=== PATIENT | female | born 1940 | race Caucasian/White ===

== ENCOUNTER → 2018-04-02 14:35 | Outpatient (CLI) | payer MEDICARE, SELFPAY ==
--- NOTE | 2018-04-02 14:39 | BI_ITS ---
MAMMOGRAPHY - BILATERAL SCREENING REASON FOR EXAM: Female, 77 years old. Routine annual screening examination. PERTINENT HISTORY: Non-contributory. TECHNIQUE: Digital bilateral breast sonia (3D mammographic acquisition) in the CC and MLO projections. 2-D mediolateral oblique (MLO) and craniocaudad (CC) views of both breasts were obtained. CAD: Full Field Digital Mammography with Computer Added Detection was performed. COMPARISON: Comparison is made with prior study dated February 24, 2013. FINDINGS: Breast Composition: The breasts are heterogeneously dense, which may obscure small masses. There are no dominant masses or suspicious calcifications. Stable small bilateral axillary lymph nodes. No other significant abnormalities are identified. There has been no significant change since the prior study. BI/SCREENING MAMM (CAD), BILAT IMPRESSION: Stable bilateral screening mammogram. Yearly follow-up mammogram recommended. (A) ASSESSMENT CATEGORY: BIRADS Category 2: Benign. A letter regarding these results will be sent to the patient by the facility within 30 days. Approximately 10% of breast cancers are not detected by mammography. A normal mammogram should not delay biopsy of a clinically suspicious abnormality. [id number] Electronically Signed: Job Toussaint MD at 8:24 EST Tel [phone], Service support ,
--- NOTE | 2018-04-02 14:42 | BD_ITS ---
STUDY: DUAL ENERGY X-RAY ABSORPTIOMETRY / DXA REASON FOR EXAM: Female, 77 years old. Early menopause. TECHNIQUE: Bone Mineral Density (BMD) measurements of lumbar spine and bilateral hips were obtained. COMPARISON: Loss of height. FINDINGS: Lumbar Spine (L1-L4): g/cm2 (0.849) / T-score (-2.6) / Z-score (-0.8) Findings are suggestive of osteoporosis with a high fracture risk. Left Femur Total: g/cm2 (0.759) / T-score (-2.0) / Z-score (-0.1) Left Femoral Neck: g/cm2 (0.621) / T-score (-3.0) / Z-score (-1.0) Right Femur Total: g/cm2 (0.767) / T-score (-1.9) / Z-score (0.0) Right Femoral Neck: g/cm2 (0.635) / T-score (-2.9) / Z-score (-0.9) BD/Dexa Bone Density Study IMPRESSION: The patient is considered osteoporotic as outlined below according to World [employer] Organization (WHO) criteria with a high fracture risk. Reference Information: The T-score is the number of standard deviations above or below the standard which is normal for young adults at their peak bone mineral density. The World Health Organization (WHO) interprets the T-scores as follows: Above -1 Normal bone density Between -1 and -2.5 Osteopenia Equal to / or below -2.5 Osteoporosis As a practical clinical guideline, osteopenia may be graded as follows: Mild -1 through -1.5 Moderate -1.6 through -2.0 Severe -2.1 through -2.4 The Z-score is the number of standard deviations above or below age-matched controls. A Z-score of less than -1.5 would be considered abnormal. References: 1. NIH Osteoporosis and Related Bone Diseases http://www.osteo.org 2. International Society for Clinical Densitometry http://www.iscd.org 3. National Osteoporosis Foundation http://www.nof.org Electronically Signed: Job Toussaint MD at 15:11 EST Tel [phone], Service support ,
--- OUTSIDE RECORDS SUMMARY | 2018-05-19 11:55 | XMS RPT_ITS | Continuity of Care Document ---
:1940 Author Organization [facility] Address [address] [place] [address] Phone Care Team Providers Name Role Phone Steffany Nieves DO Unavailable ARI Shrestha Unavailable Unavailable Unavailable Unavailable Problems Name Dates Details Abortions/Miscarriages Comments: 1. Status: Active Annual Medicare Phyiscal WITHOUT abnormal findings (Renamed from Encounter for general adult medical examination without abnormal findings) (Z00.00, V70.9) Status: Active Annual Medicare Phyiscal WITHOUT abnormal findings (Renamed from Encounter for general adult medical examination without abnormal findings) (Z00.00, V70.9) Status: Active Annual physical exam (Z00.00, V70.0) Status: Active BMI 24.0-24.9, adult (Z68.24, V85.1) Status: Active BMI 26.0-26.9,adult (Z68.26, V85.22) Status: Active Breast cancer screening (Z12.39, V76.10) Status: Active Encounter for Medicare annual wellness exam (Z00.00, V70.0) Status: Active Encounter for screening for malignant neoplasm of colon (Renamed from Special screening for malignant neoplasms, colon) (Z12.11, V76.51) Status: Active Encounter for screening for malignant neoplasm of rectum (Z12.12, V76.41) Status: Active Encounter for screening mammogram for breast cancer (Renamed from Encounter for screening mammogram for malignant neoplasm of breast) (Z12.31, V76.12) Status: Active History of sciatica (Z86.69, V12.49) Status: Active Hyperlipidemia, unspecified (E78.5, 272.4) Status: Active Need for prophylactic vaccination and inoculation against influenza (Z23, V04.81) Status: Active Need for vaccination against Streptococcus pneumoniae (Z23, V03.82) Status: Active Postmenopausal (Renamed from Postmenopausal status) (Z78.0, V49.81) Status: Active Pregnancies () Comments: 1. Status: Active SCREENING FOR HYPERLIPIDEMIA (Renamed from Encounter for screening for lipoid disorders) (Z13.220, V77.91) Status: Active Smoker (F17.200, 305.1) Status: Active Medications Name Dates Details No Known Historical Medications Cyclobenzaprine HCl 10 MG Oral Tablet 1 (one) Tablet q 8 hours prn for 0 days Quantity: 30 {Tablet} Refills: 1 Ordered:04-Feb-2018 Sophia Shrestha LPN Start : 28-Feb-2016 End : 04-Feb-2018 Inactive HYDROCODONE-ACETAMINOPHEN, 5-325MG (Oral Tablet) 1 (one) Tablet q 8 hours prn for 0 days Quantity: 60 {Tablet} Refills: 0 Ordered:15-Feb-2015 Sophia Shrestha LPN Start : 10-May-2014 End : 15-Feb-2015 Inactive NAPROXEN, 500MG (Oral Tablet) 1 (one) Tablet bid prn for 0 days Quantity: 60 {Tablet} Refills: 0 Ordered:15-Feb-2015 Sophia Shrestha LPN Start : 10-May-2014 End : 15-Feb-2015 Inactive Allergies and Adverse Reactions Name Dates Details Sulfa Drugs (Allergy) Status: Active Comments: eyes swelled Past Medical History Name Dates Details Sciatica (M54.30, 724.3) Status: Resolved as of 04-Feb-2018 Skin lesion of left arm (L98.9, 709.9) Status: Inactive as of 04-Feb-2018 Procedures Procedure Dates Details Cataract Surgery Completed Colonoscopy, Screening Completed Comments: 2008 Mammogram, Screening Completed Comments: 09/03/06 Pap Smear Completed Comments: 02/25/07 Date Value Details 07-May-2014 Emergency Department Summary Result: Comments: See Note; NOTES: [facility] Medical Records Department [address] [place] [address] Emergency Department Summary MR#: [id number] Acct: [id number] Name: RAQUEL ESPINOSA Rep #: [id number] : 1940 73 From: Dane Jaeger DO PCP: Steffany Nieves DO Status: [facility] ER DATE OF SERVICE: 05/06/2014 CHIEF COMPLAINT: Left hip/left leg pain. HISTORY OF IEF COMPLAINT: A 73-year-old female with pain x2 weeks. She denies any trauma. She did have the respiratory flu 2-1/2 weeks ago, not sure if this is related, but she describes pain radiating down he r leg, at times some numbness and tingling. Pain is very positional, worse with standing and moving. Pain is severe at times, has not seen anybody for this. She has never had pain like this before. She does describe some pain into her low back as well. PAST MEDICAL HISTORY: None. PAST SURGICAL HISTORY: None. PRIMARY CARE PHYSICIAN: Dr. Nieves. ALLERGIES: SULFA. SOCIAL HISTORY: The patient is a smoker. She drinks alcohol occasionally. Denies any illicit drug use. PHYSICAL EXAMINATION: VITAL SIGNS: Blood pressure 141/99, temperature 97.1, heart rate 111, respirations 16. GEN ERAL APPEARANCE: The patient is awake, alert, in no acute distress. HEENT: She is normocephalic, atraumatic. Pupils are equal and reactive to light. TMs are clear. NECK: Supple. Mucous membranes are moist. CARDIOVASCULAR: Heart is regular rate and rhythm. LUNGS: Clear. No rales or wheezes. ABDOMEN: Soft, not tender. No rebound, rigidity or peritoneal signs. No masses palpated. EXTREMITIES: I ntact x4. Muscle strength is +5/5. Evaluation of her back reveals some tenderness to palpation over lumbar paraspinal musculature. No pain in the midline. She had positive straight leg raise with pa in at about 75 degrees. She had no pain with log rolling at the hip. The hip is not red or erythematous. She does have tenderness to palpation into the left buttock over the area of the piriformis. D eep tendon reflexes +2/4 equal bilaterally at the patella and Achilles. Normal L5 extension. Normal sensation to light touch. Exam otherwise is unremarkable. EMERGENCY DEPARTMENT COURSE: At this point, I had a long discussion with the patient and family. I suspect likely a sciatica issue here. The patient I do not feel warrants any type of imaging at this point as she has had no trauma. She is instructed to follow up with Dr. Nieves within the next 4-5 days. Given a script for Naprosyn, Tipton and Flexeril for pain, instructed that symptoms if they do not improve may need some imaging in cluding possibly MRI to evaluate further. She will be discharged to home. Instructed to return if worsening pain, change in bowel or bladder function, weakness to the extremity or if condition worsen s in any way. DISPOSITION: Discharged to home in stable condition. DIAGNOSIS: Again sciatica. Dane Jaeger DO T: NTS JOB: [id number] 05/07/14 0059 <Electronically signed by Dane Jaeger DO> Date Dane Jaeger DO CC: Steffany Nieves DO Date Dictated: 05/06/141906 Date Transcribed: 05/06/141906 Senior Communications Specialist: Signed 06-May-2014 Discharge Instruction Result: Comments: See Note; NOTES: [facility] Medical Records Department [address] [place] [id number] Discharge Instruction 05/06/141903 MR#: [id number] Acct: [id number] Name: RAQUEL KAMINSKI Rep #: [id number] : 1940 73 From: Dane Jaeger DO PCP: Steffany Nieves DO Status: PRE ER ED Disposition - Plan for ED Patient: Chief Complaint: Lower Extremity Injury Instructions: ED Sciatica Prescriptions: Hydrocodone Bitart/Apap 5-325 [Tipton 5/325] 1 - 2 tablet PO Q4H PRN PRN #20 tablet PRN Reason: Pain Naproxen [Naprosyn] 500 mg PO BID #20 tablet Cycloben zaprine [Flexeril] 10 mg PO TID PRN #20 tablet PRN Reason: Muscle Spasm Referrals: Steffany Nieves DO [Primary Care Provider] - 3-5 Days if not improving What to do if you have Problems For an y increased pain, shortness of breath, bleeding, nausea or vomiting, chest pain, or any unexpected problems, contact your doctor. Call [facility] ) or report to the closest Emergency Room. Call 911 if necessary. 05/06/14 1905 <Electronically signed by Dane Jaeger DO> Date Dane Jaeger DO Cosigner Signatur e (If Indicated): Date CC: Steffany Nieves DO 24-Feb-2013 Bilat Scrn Digital & CAD Result: Comments: See Note; NOTES: [facility] Imaging Services [address] [place] [id number] Breast Imaging Report MR#: [id number] Acct: [id number] Name: RAQUEL KAMINSKI Rep #: [id number] : 1940 F 72 From: Job Toussaint MD PCP: Status: [facility] Exam# [id number] Ordering Dr: Steffany Nieves DO MAMMOGRAPHY - BILATERAL SCREENING REASON FOR EXAM: Female, 72 years old. Routine annual screening examination. PERTINENT HISTORY: Non-contributory. TECHNIQUE: Digital examination. Mediolateral oblique (MLO) and craniocaudad (CC) views of both breasts were ob tained. CAD: CAD was performed on this study. COMPARISON: Comparison is made with prior examination dated September 03, 2006 and February 19, 2005. FINDINGS: The veronica ast composition is heterogeneously dense - ranging from 51% to 75% of the breast tissue. There are no dominant masses or suspicious calcifications. No other significant abnormalities are identified . There has been no significant change since the prior study. IMPRESSION: Stable bilateral screening mammogram. Yearly follow-up recommended. (A) ASSESSMENT CATEGORY: BIRADS Category 2: Benign finding(s). A letter regarding these results will be sent to the patient by the facility within 30 days. Approximately 10% of b reast cancers are not detected by mammography. A normal mammogram should not delay biopsy of a clinically suspicious abnormality. Signed: Job Toussaint M.D. February 24, 2013 at 11:11:[address] [phone] Electronically Signed GP/GP If you are the referring physician and would like to consult with the radiologist who provided this interpretation, please contact Job Toussaint M.D. at [phone]. If this radiologist is unavailable, you will be directed to another radiologist to assist. If you are a patient with a question regarding this report, please contact your refe rring physician directly. Professional Interpretation Provided By: [employer], Phone , These documents contain legally protected and confidential health information intended only for the use of the individual or entity named above. If you are not the intended recipient, you are hereby notified that any disclosure, copying, distribution, or other use of these docu ments is strictly prohibited. If you have received this information in error, please notify the sender immediately and arrange for the return or destruction of these documents. CC: Steffany Nieves DO Senior Communications Specialist: Signed Family History Unknown Family Member Name Dates Details No Known Family History 22-Jan-2013 Status: Active Social History Name Dates Details Caffeine Use Status: Active No Drug Use Status: Active Non Drinker/No Alcohol Use Status: Active Tobacco use: Smoker. Status: Active Smoking Status Name Dates Details Smoker. current status unknown Vital Signs Date Test Result Details [id number]-[id number] Pulse 90 /min Comments: Pattern: Regular Respiration Rate 18 /min Comments: Pattern: Unlabored O2 SAT 94 % Comments: Room air BP Systolic 123 mm[Hg] Comments: Patient Position: Sitting; Cuff Location: Left Arm; Cuff Size: Standard BP Diastolic 84 mm[Hg] Comments: Patient Position: Sitting; Cuff Location: Left Arm; Cuff Size: Standard Weight 134 lb Height 62.5 in Body Mass Index Calculated 24.12 kg/m2 Body Surface Area Calculated 1.62 m2 9-Gkw-[id number]:17 Pulse 98 /min Comments: Pattern: Regular Respiration Rate 18 /min Comments: Pattern: Unlabored O2 SAT 90 % Comments: Room air BP Systolic 142 mm[Hg] Comments: Patient Position: Sitting; Cuff Location: Left Arm; Cuff Size: Large BP Diastolic 82 mm[Hg] Comments: Patient Position: Sitting; Cuff Location: Left Arm; Cuff Size: Large Weight 146.375 lb Height 62.5 in Body Mass Index Calculated 26.35 kg/m2 Body Surface Area Calculated 1.68 m2 :44 Pulse 84 /min Comments: Pattern: Regular Respiration Rate 20 /min Comments: Pattern: Unlabored O2 SAT 92 % Comments: Room air BP Systolic 124 mm[Hg] Comments: Patient Position: Sitting; Cuff Location: Left Arm; Cuff Size: Large BP Diastolic 62 mm[Hg] Comments: Patient Position: Sitting; Cuff Location: Left Arm; Cuff Size: Large Weight 148.5 lb Height 62.5 in Body Mass Index Calculated 26.73 kg/m2 Body Surface Area Calculated 1.69 m2 :14 Comments: eye--Dr Whittaker glaucoma test 2013hearing wnl Pulse 91 /min Comments: Pattern: Regular Respiration Rate 20 /min Comments: Pattern: Unlabored O2 SAT 91 % Comments: Room air BP Systolic 124 mm[Hg] Comments: Patient Position: Sitting; Cuff Location: Left Arm; Cuff Size: Standard BP Diastolic 82 mm[Hg] Comments: Patient Position: Sitting; Cuff Location: Left Arm; Cuff Size: Standard Weight 154.1875 lb Height 62.5 in Body Mass Index Calculated 27.75 kg/m2 Body Surface Area Calculated 1.72 m2 :38 Pulse 73 /min Comments: Pattern: Regular Respiration Rate 20 /min Comments: Pattern: Unlabored O2 SAT 93 % Comments: Room air BP Systolic 120 mm[Hg] Comments: Patient Position: Sitting; Cuff Location: Left Arm; Cuff Size: Standard BP Diastolic 80 mm[Hg] Comments: Patient Position: Sitting; Cuff Location: Left Arm; Cuff Size: Standard Weight 150.25 lb Height 62.5 in Body Mass Index Calculated 27.04 kg/m2 Body Surface Area Calculated 1.7 m2 Results Date Description Value Details 03-Wab-[id number]:38 LIPID PANEL (52399) Comments: PATIENT WAS FASTINGPERFORMED BY: [facility] [id number] [facility] [id number] Information: [id number] LDL/HDL Ratio 1.9 {ratio_units} (Normal) Range: 0.0-3.2 Comments: LDL/HDL Ratio Men Women 1/2 Avg.Risk 1.0 1.5 Av g.Risk 3.6 3.2 2X Avg.Risk 6.2 5.0 3X Avg.Risk 8.0 6.1 LDL Cholesterol Calc 144 mg/dL (Abnormal) Range: 0-99 VLDL Cholesterol Maicol 28 mg/dL (Normal) Range: 5-40 HDL Cholesterol 74 mg/dL (Normal) Comments: According to ATP-III Guidelines, HDL-C >59 mg/dL is considered anegative risk factor for CHD. Triglycerides 142 mg/dL (Normal) Range: 0-149 Cholesterol, Total 246 mg/dL (Abnormal) Range: 100-199 Plan of Care Name Dates Details Instructions Annual Medicare Phyiscal WITHOUT abnormal findings (Renamed from Encounter for general adult medical examination without abnormal findings) : fall reduction handout Indication: Annual Medicare Phyiscal WITHOUT abnormal findings (Renamed from Encounter for general adult medical examination without abnormal findings) Annual Medicare Phyiscal WITHOUT abnormal findings (Renamed from Encounter for general adult medical examination without abnormal findings) : elderly packet given Indication: Annual Medicare Phyiscal WITHOUT abnormal findings (Renamed from Encounter for general adult medical examination without abnormal findings) Annual Medicare Phyiscal WITHOUT abnormal findings (Renamed from Encounter for general adult medical examination without abnormal findings) : advance planning information Indication: Annual Medicare Phyiscal WITHOUT abnormal findings (Renamed from Encounter for general adult medical examination without abnormal findings) Postmenopausal (Renamed from Postmenopausal status) : Self breast exam Indication: Postmenopausal (Renamed from Postmenopausal status) Need for prophylactic vaccination and inoculation against influenza : Flu (Influenza) *: flu shot Indication: Need for prophylactic vaccination and inoculation against influenza Need for prophylactic vaccination and inoculation against influenza : Follow up in 1 year or as needed Indication: Need for prophylactic vaccination and inoculation against influenza Encounter for screening for malignant neoplasm of colon (Renamed from Special screening for malignant neoplasms, colon) : *Colon Cancer Screening Indication: Encounter for screening for malignant neoplasm of colon (Renamed from Special screening for malignant neoplasms, colon) Annual Medicare Phyiscal WITHOUT abnormal findings (Renamed from Encounter for general adult medical examination without abnormal findings) : Flu (Influenza) *: flu shot Indication: Annual Medicare Phyiscal WITHOUT abnormal findings (Renamed from Encounter for general adult medical examination without abnormal findings) Breast cancer screening : *Colon Cancer Screening Indication: Breast cancer screening Encounter for Medicare annual wellness exam : fall reduction handout Indication: Encounter for Medicare annual wellness exam Encounter for Medicare annual wellness exam : elderly packet given Indication: Encounter for Medicare annual wellness exam Encounter for Medicare annual wellness exam : advance planning information Indication: Encounter for Medicare annual wellness exam Need for prophylactic vaccination and inoculation against influenza : Flu (Influenza) *: flu shot Indication: Need for prophylactic vaccination and inoculation against influenza Annual physical exam : *Colon Cancer Screening Indication: Annual physical exam Need for prophylactic vaccination and inoculation against influenza : Flu (Influenza) *: flu shot Indication: Need for prophylactic vaccination and inoculation against influenza Planned Observations LIPID PANEL (58607)Indication: SCREENING FOR HYPERLIPIDEMIA (Renamed from Encounter for screening for lipoid disorders) On: 49-Wcp-50155:58 Request Cologuard - Strool Based DNA Test, CRC SCREEN (89215)Indication: Encounter for screening for malignant neoplasm of rectum On: 36-Lzv-37187:56 Request FECAL OCCULT- Tubes sent home ([id number])Indication: Encounter for screening for malignant neoplasm of colon (Renamed from Special screening for malignant neoplasms, colon) On: 00-Qhs-263433:36 Request FECAL OCCULT- Tubes sent home (84227)Indication: Annual physical exam On: 3-Ixj-111180:55 Request Planned Procedures DEXA SCAN AXIAL SKELETON (64971)By: On: 04-Feb-2018 Intent Steffany Nieves DO, DO, Kathleen SCREENING DIGITAL TOMOSYNTHESIS OF On: 04-Feb-2018 Intent BREAST (47710)By: Steffany Nieves DO, DO, Kathleen Flu Vaccine (Quadrivalent) 29748Vv: On: 04-Feb-2018 Intent Steffany Nieves DO, DO, Comments: Lot #[id number] Exp-10/18/18Site-L dltd, IMDose prefilled syringegiven by: Mika ZAMORAVIS reviewed and ABN signed Steffany Flu Vaccine (Quadrivalent) 48969Gq: On: 28-Feb-2016 Intent Lizbeth DO, Steffanymikala Nieves DO, Comments: FLUlot: [id number]:09/04site:Lt deltoidroute:IMdose:.5mlDEMICKNAN Steffany MAMMOGRAM, SCREENING, BOTH BREAST On: 15-Feb-2015 Intent (57245)By: Steffany Nieves DO Lizbeth DO, Steffany Flu Vaccine (Quadrivalent) [id number]: On: 15-Feb-2015 Intent Lizbeth DO, Steffany Lizbeth DO, Steffany Flu Vaccine (Quadrivalent) 15993Au: On: 15-Feb-2015 Intent Lizbeth DO, Steffany Lizbeth DO, Comments: Lot:[id number]:10/19/15Dose:0.5mLRoute:IMSite:L DltdGiven By:ARNOLDO signed Steffany MAMMOGRAM, SCREENING, BOTH BREAST On: 18-Feb-2014 Intent (68413)By: Lizbeth JEFFREY, Steffany Lizbeth DO, Steffany Prevnar 13 (20490)By: Lizbeth JEFFREY, On: 18-Feb-2014 Intent SteffanySteffany Huynh DO Comments: [id number] arm, IMAS ADMINISTRATION OF INFLUENZA VIRUS On: 18-Feb-2014 Intent VACCINE (G0008)By: Steffany Nieves DO Lizbeth DO, Steffany FLU VAC, SPLIT, >3 YEARS, INTRAMUSC On: 18-Feb-2014 Intent (04341)By: Steffany Nieves DO Comments: Lot:[id number]:01/04Amt:0.5mlRoute:IMSite: L DltdGiven By: RUSTY Farris signed Lizbeth DO, Steffany FLU VAC, SPLIT, >3 YEARS, INTRAMUSC On: 22-Jan-2013 Intent (38485)By: Steffany Nieves DO Comments: lot [id number] 2014site/route R leonel, IMamt 0.5mlVIS and ABN signed when applicableGEETHA Jose DO, Kathleen TDAP VACCINE >7 IM (63167)By: Lizbeth On: 22-Jan-2013 Steffany Montoya DO, DO, Kathleen Comments: lot: [id number]: 06/11/2015site/route: L deltoid/IMamt: 0.5mLVIS signed when applicableGEETHA Jose MAMMOGRAM, SCREENING, BOTH BREASTS On: 22-Jan-2013 Intent (79892)By: Steffany Nieves DO Comments: dx breast screening Steffany Nieves DO ADMINISTRATION OF INFLUENZA VIRUS On: 22-Jan-2013 Intent VACCINE (G0008)By: Steffany Nieves DO, DO, Kathleen Instructions Name Dates Details Smoker : How to access health information online Indication: Smoker Smoker : How to access health information online - Detail Indication: Smoker Smoker : Patient Instructions Indication: Smoker Need for prophylactic vaccination and inoculation against influenza : How to access health information online Indication: Need for prophylactic vaccination and inoculation against influenza Need for prophylactic vaccination and inoculation against influenza : How to access health information online - Detail Indication: Need for prophylactic vaccination and inoculation against influenza Need for prophylactic vaccination and inoculation against influenza : Patient Instructions Indication: Need for prophylactic vaccination and inoculation against influenza Annual Medicare Phyiscal WITHOUT abnormal findings (Renamed from Encounter for general adult medical examination without abnormal findings) : How to access health information online Indication: Annual Medicare Phyiscal WITHOUT abnormal findings (Renamed from Encounter for general adult medical examination without abnormal findings) Annual Medicare Phyiscal WITHOUT abnormal findings (Renamed from Encounter for general adult medical examination without abnormal findings) : How to access health information online - Detail Indication: Annual Medicare Phyiscal WITHOUT abnormal findings (Renamed from Encounter for general adult medical examination without abnormal findings) Annual Medicare Phyiscal WITHOUT abnormal findings (Renamed from Encounter for general adult medical examination without abnormal findings) : Patient Instructions Indication: Annual Medicare Phyiscal WITHOUT abnormal findings (Renamed from Encounter for general adult medical examination without abnormal findings) Annual physical exam : Patient Instructions Indication: Annual physical exam Encounters Office Visit On: 04-Feb-2018 9:10 Encounter Reason: Follow up for chronic medical issues - The patient feels well with minor complaints, has good energy level and is sleeping well. Patient has been compliant with instructions. Patient sleeps 7 hours per End: 04-Feb-2018 14:30 night. Nutrition: balanced diet and supplemental vitamins. The medical issues the patient is following up for include All identified problems below.Encounter Diagnosis: Smoker, Need for prophylactic vaccination and inoculation against influenza, BMI 24.0-24.9, adult, Annual Medicare Phyiscal WITHOUT abnormal findings (Renamed from Encounter for general adult medical examination without abnormal findings), Encounter for screening for malignant neoplasm of rectum, Encounter for screening mammogram for breast cancer (Renamed from Encounter for screening mammogram for malignant neoplasm of breast), Postmenopausal (Renamed from Postmenopausal status), SCREENING FOR HYPERLIPIDEMIA (Renamed from Encounter for screening for lipoid disorders) [facility] Office Visit On: 28-Feb-2016 10:09 Encounter Reason: Follow up for chronic medical issues - The patient feels well with minor complaints, has good energy level and is sleeping well. Patient has been compliant with instructions. Patient sleeps 7 hours per End: 28-Feb-2016 11:10 night. Nutrition: balanced diet and supplemental vitamins. The medical issues the patient is following up for include All identified problems below.Encounter Diagnosis: Need for prophylactic vaccination and inoculation against influenza, Smoker, BMI 26.0-26.9,adult, Skin lesion of left arm, History of sciatica [facility] Office Visit On: 15-Feb-2015 11:39 Encounter Reason: Follow up for chronic medical issues - The patient feels well with minor complaints, has good energy level and is sleeping well. Patient has been compliant with instructions. Current medication use: no End: 15-Feb-2015 12:50 side effects and compliant with dosing regimen. Patient sleeps 7 hours per night. Nutrition: balanced diet and supplemental vitamins. The medical issues the patient is following up for include All identified problems below. weight :. Encounter Diagnosis: Annual Medicare Phyiscal WITHOUT abnormal findings (Renamed from Encounter for general adult medical examination without abnormal findings), Need for prophylactic vaccination and inoculation against influenza, Encounter for screening for malignant neoplasm of colon (Renamed from Special screening for malignant neoplasms, colon), Encounter for screening mammogram for breast cancer (Renamed from Encounter for screening mammogram f or malignant neoplasm of breast) [facility] Prescription Refill On: 20-May-2014 15:18 Encounter Diagnosis: Hyperlipidemia, Unspecified (272.4) End: 20-May-2014 15:19 [facility] Medicine Refill Request On: 10-May-2014 13:03 Encounter Diagnosis: Sciatica End: 10-May-2014 13:05 [facility] Office Visit On: 18-Feb-2014 8:12 Encounter Reason: Follow up for chronic medical issues - The patient feels well with minor complaints, has good energy level and is sleeping well. Patient has been compliant with instructions. Patient sleeps 7 hours per End: 18-Feb-2014 10:12 night. Nutrition: balanced diet and supplemental vitamins. The medical issues the patient is following up for include All identified problems below., [ADDITIONAL REASON] Annual Medicare Exam - Yes the patient did have a mini mental status exam done today. The activities of daily living the patient needs help with are none. The patient has put area r ugs through house, but the patient has not had fecal incontinence, had urinary incontinence, missed or ran out of medications to soon, driven in past 6 months, fallen in the past 6 months, gotten lost, has a medalert necklace or bracelet or put handrails in bathroom. The patient has completed the following preventative measures: PAP smear (2012), mammography (2012) and colonoscopy (2007). The patient does not have durable power of director field services or living will. The patient has noticed getting bored. Encounter Diagnosis: NEED FOR PROPHYLACTIC VACCINATION AND INOCULATION AGAINST INFLUENZA (V04.81), Need for vaccination against Streptococcus pneumoniae, SCREENING FOR HYPERLIPIDEMIA (Renamed from Encounter for screening for lipoid disorders), Annual Medicare Physical (V70.0), Breast cancer screening [facility] Office Visit On: 22-Jan-2013 10:23 Encounter Reason: new patient female physical - Last seen more than 1 year ago. General health: feels well with minor complaints, has good energy level and is sleeping well. The patient's appetite is normal. Nutrition: n End: 22-Jan-2013 13:40 ormal/adequate. Exercises 0 days per week. Sleeps on average 7 hours per night. Normal bowel and bladder habits. Safety measures include appropriate use of safety belts and home smoke detectors. There a re no current emotional problems. screening, colonoscopy (), screening, mammography () and screening, Pap smear ().Encounter Diagnosis: Annual physical exam (V70.0), NEED FOR PROPHYLACTIC VACCINATION AND INOCULATION AGAINST INFLUENZA (V04.81) [facility] Payers Hum//Medicare Adv Pool pascualor
--- OUTSIDE RECORDS SUMMARY | 2018-05-19 11:56 | XMS RPT_ITS ---
:1940 Author Organization OHIP Care Team Providers Name Role Phone Steffany Nieves DO Attending Unavailable Lizbeth DO, Steffany Referring Unavailable Lizbeth DO, Steffany Consulting Unavailable LizbethSteffany Attending Unavailable Lizbeth, Steffany Primary Care Unavailable Hiren Rios Attending Unavailable Hiren Rios Referring Unavailable LizbethSteffany Primary Care Unavailable PROBLEMS PROBLEMS DATE TYPE CONDITION / CODE ATTENDING STATUS SOURCE 04/03/2018 Unknown Z78.0 - Lizbeth, Active Joshua Asymptomatic [facility] menopausal state / Hospital Z78.0(ICD-10) Repository 04/03/2018 Unknown Z12.31 - Encounter Lizbeth, Active Joshua for screening [facility] mammogram for Hospital malignant neoplasm Repository of breast / Z12.31(ICD-10) PROCEDURES PROCEDURES No Procedure Records FoundRESULTS RESULTS COLON BIOPSY (CHOOSE Observed: 04/07/2018 Status: F Source: JOSHUA SITE) 11:46 AM [facility] REPOSITORY Patient: WALESKA KAMINSKI : 1940 (77/F) Acct Num: [id number] Phys: Hiren Rios Unit Num: [id number] Loc: LABSPEC Specimen: [id number] Received: 04/07/181610 Spec Type: COLON BX TISSUES 1 TISSUES: Transverse colon GROSS DESCRIPTION Received in fixative is one container labeled with the patient's name and designated transverse colon polyp. The specimen consists of two irregular fragments of light singh soft tissue that in aggregate measure 0.6 x 0.3 x 0.1 cm. The specimen is totally submitted in one cassette. / AM:mary 04/08/18 TC:5 CPT: 32767 HEADER OPERATION: Colonoscopy with cold snare PRE-OP DIAGNOSIS: Positive Cologuard test TISSUE SUBMITTED: Polyp proximal transverse, rule out adenoma MICROSCOPIC DESCRIPTION Slides are reviewed. MICROSCOPIC DIAGNOSIS Proximal transverse colon polyp, biopsy: Fragments of tubular adenoma. AM:mary 04/09/18 Signed Jason Garcia DO 04/09/18 <signature on file> Performed By: #### PCOLBX #### [facility] [address]. [place], [place], [address] DEXA BONE DENSITY Observed: 04/02/2018 Status: F Source: [facility] STUDY 2:40 PM [facility] REPOSITORY [facility] Imaging Services [address] [place] [address] Dexa Bone Density Study MR#: [id number] Acct: [id number] Name: WALESKA KAMINSKI Rep #: [id number] : 1940 F 77 From: Job Toussaint MD PCP: Steffany Nieves DO Status: [facility] Study: Dexa Bone Density Study Date of Exam: 04/02/18 Exam# [id number] Ordering Dr: Steffany Nieves DO STUDY: DUAL ENERGY X-RAY ABSORPTIOMETRY / DXA REASON FOR EXAM: Female, 77 years old. Early menopause. TECHNIQUE: Bone Mineral Density (BMD) measurements of lumbar spine and bilateral hips were obtained. COMPARISON: Loss of height. FINDINGS: Lumbar Spine (L1-L4): g/cm2 (0.849) / T-score (-2.6) / Z-score (-0.8) Findings are suggestive of osteoporosis with a high fracture risk. Left Femur Total: g/cm2 (0.759) / T-score (-2.0) / Z- score (-0.1) Left Femoral Neck: g/cm2 (0.621) / T-score (-3.0) / Z- score (-1.0) Right Femur Total: g/cm2 (0.767) / T-score (-1.9) / Z- score (0.0) Right Femoral Neck: g/cm2 (0.635) / T-score (-2.9) / Z-score (-0.9) BD/Dexa Bone Density Study IMPRESSION: The patient is considered osteoporotic as outlined below according to World R[employer] Organization (WHO) criteria with a high fracture risk. Reference Information: The T-score is the number of standard deviations above or below the standard which is normal for young adults at their peak bone mineral density. The World Health Organization (WHO) interprets the T-scores as follows: Above -1 Normal bone density Between -1 and -2.5 Osteopenia Equal to / or below -2.5 Osteoporosis As a practical clinical guideline, osteopenia may be graded as follows: Mild -1 through -1.5 Moderate -1.6 through -2.0 Severe -2.1 through -2.4 The Z-score is the number of standard deviations above or below age-matched controls. A Z-score of less than -1.5 would be considered abnormal. References: 1. NIH Osteoporosis and Related Bone Diseases http://www.osteo.org 2. International Society for Clinical Densitometry http://www.iscd.org 3. National Osteoporosis Foundation http://www.nof.org Electronically Signed: Job Toussaint MD at 15:11 EST Tel [phone], Service support , CC: Steffany Nieves DO Ranger Aide: Signed SCREENING MAMM (CAD), Observed: 04/02/2018 Status: F Source: [facility] 2:40 PM [facility] REPOSITORY [facility] Imaging Services [address] [place] [address] SCREENING MAMM (CAD), BILAT MR#: [id number] Acct: [id number] Name: WALESKA KAMINSKI Rep #: [id number] : 1940 F 77 From: Job Toussaint MD PCP: Steffany Nieves DO Status: [facility] CLI Study: SCREENING MAMM (CAD), BILAT Date of Exam: 04/02/18 Exam# [id number] Ordering Dr: Steffany Nieves DO MAMMOGRAPHY - BILATERAL SCREENING REASON FOR EXAM: Female, 77 years old. Routine annual screening examination. PERTINENT HISTORY: Non-contributory. TECHNIQUE: Digital bilateral breast sonia (3D mammographic acquisition) in the CC and MLO projections. 2-D mediolateral oblique (MLO) and craniocaudad (CC) views of both breasts were obtained. CAD: Full Field Digital Mammography with Computer Added Detection was performed. COMPARISON: Comparison is made with prior study dated February 24, 2013. FINDINGS: Breast Composition: The breasts are heterogeneously dense, which may obscure small masses. There are no dominant masses or suspicious calcifications. Stable small bilateral axillary lymph nodes. No other significant abnormalities are identified. There has been no significant change since the prior study. BI/SCREENING MAMM (CAD), BILAT IMPRESSION: Stable bilateral screening mammogram. Yearly follow-up mammogram recommended. (A) ASSESSMENT CATEGORY: BIRADS Category 2: Benign. A letter regarding these results will be sent to the patient by the facility within 30 days. Approximately 10% of breast cancers are not detected by mammography. A normal mammogram should not delay biopsy of a clinically suspicious abnormality. [id number] Electronically Signed: Job Toussaint MD at 8:24 EST Tel [phone], Service support , CC: Steffany Nieves DO Ranger Aide: Signed ALLERGIES ALLERGIES DATE TYPE / CODE NAME / CODE REACTION SEVERITY SOURCE 05/06/2014 Drug Sulfa Swelling Unknown [facility]160 ([facility] 47144(SNOMED Antibiotics)/ Repository CT) [id number](RX NORM) ENCOUNTERS ENCOUNTERS ADMIT/DISCHARGE ACCOUNT ADMITTING ENCOUNTER LOCATION SOURCE NUMBER CLASS 04/07/2018 [id number] Ambulatory Joshua [place] 0 [facility] ing:LABSPEC Repository 04/03/2018 [id number] Ambulatory Building:[facility] OHIP Practices Repository 04/02/2018 [id number] Ambulatory [place] 0 [facility] ing:OPBD Repository PAYERS PAYERS ENCOUNTER GUARANTOR PAYER SUBSCRIBER SOURCE 04/07/2018 WALESKA Calvo Primary WALESKA Bal [id number] Insurance:HUMANA FILIPEEBNERDOB: Community [place] [facility] PPOPolicy [id number], Number: Repository [place] [address]Oio: [id number] Date:2614-90-38FC BOX () [address] [place] [phone]: 04/07/2018 Secondary NOT GIVENUNK [place] Insurance:SELF PAY [facility] Number: Effective Repository Date:2018-04-07 04/03/2018 Waleska Calvo Primary Waleska Calvo [facility] HuebnerDOB: Insurance:Hum//Medica HuebnerDOB: Repository [id number] [facility] [id number] [place] Number: [address] [facility] [id number] [place], [place] [address]Cjb: Date:7003-07-32Hqhg [place], [place] [address]Jxl: Name:[facility] Box ()Tel: ([phone]) [address] [place] [address] () [phone] () [address]WP: 04/02/2018 WALESKA Calvo Primary WALESKA Bal [id number] Insurance:ALONDRA BALDERAS: Community [place] [employer] PPOPolicy [id number], Number: Repository [place] [address]Ozd: [id number] Date:1817-53-57RY BOX () [address] [place] [phone]: 04/02/2018 Secondary NOT GIVENLUIS Bal Insurance:SELF PAY [facility] Number: Effective Repository Date:2018-02-04
--- OUTSIDE RECORDS SUMMARY | 2018-05-19 11:56 | XMS RPT_ITS | Continuity of Care Document ---
:1940 Author Organization [facility] Address [address] [place] [address] Phone Care Team Providers Name Role Phone Steffany Nieves DO Unavailable Dr. Hiren Rios Unavailable ARI Shrestha Unavailable Unavailable long, noemy Unavailable Unavailable Unavailable Unavailable Problems Name Dates [...] against Streptococcus pneumoniae (Z23, V03.82) Status: Active Positive colorectal cancer screening using Cologuard test (R19.5, 787.7) Status: Active Postmenopausal (Renamed from Postmenopausal status) [...] Department Summary Result: Comments: See Note; NOTES: [facility] Medical Records Department [address] [place] [address] Emergency Department Summary MR#: [id number] Acct: [id number] Name: RAQUEL ESPINOSA Rep #: [id number] : 1940 73 From: Dane Jaeger DO PCP: Steffany Nieves DO Status: DEP ER DATE OF SERVICE: 05/06/2014 CHIEF COMPLAINT: Left hip/left leg pain. HISTORY OF CH IEF COMPLAINT: A 73-year-old female with pain [...] 4-5 days. Given a script for Naprosyn, [place] and Flexeril for pain, instructed that symptoms [...] sciatica. Dane Jaeger DO T: NTS JOB: [id number] 05/07/14 0059 <Electronically signed by Dane Jaeger DO> Date Dane Jaeger DO CC: Steffany Nieves DO Date Dictated: 05/06/141906 Date Transcribed: 05/06/141906 Material Flow Analyst: Signed 06-May-2014 Discharge Instruction Result: Comments: See Note; NOTES: [facility] Medical Records Department [address] [place] [address] Discharge Instruction 05/06/141903 MR#: [id number] Acct: [id number] Name: RAUQEL KAMINSKI [place] Rep #: [id number] : 1940 73 From: Dane Jaeger DO PCP: Steffany Nieves DO Status: PRE ER ED Disposition - Plan for ED Patient: Chief Complaint: Lower Extremity Injury Instructions: ED Sciatica Prescriptions: Hydrocodone Bitart/Apap 5-325 [[place] 5/325] 1 - 2 tablet PO Q4H [...] problems, contact your doctor. Call [facility] ( [phone]) or report to the closest Emergency Room. Call 911 if necessary. 05/06/14 1905 <Electronically signed by Dane Jaeger DO> Date Dane Jaeger DO Cosigner Signatur e (If Indicated): Date CC: Steffany Nieves DO 24-Feb-2013 Bilat Scrn Digital & CAD Result: Comments: See Note; NOTES: [facility] Imaging Services [address] [place] [address] Breast Imaging Report MR#: [id number] Acct: [id number] Name: RAQUEL KAMINSKI Rep #: [id number] : 1940 F 72 From: Job Toussaint MD PCP: Status: REG CLI Exam# [id number] Ordering Dr: Steffany Nieves DO MAMMOGRAPHY - [...] 24, 2013 at 11:11:[address] [phone] Electronically Signed GP/GP If you are the referring physician and would like to consult with the radiologist who provided this interpretation, please contact Job Toussaint M.D. at [phone]. If this radiologist is unavailable, you will be directed to another radiologist to assist. If you are a patient with a question regarding this report, please contact your refe rring physician directly. Professional Interpretation Provided By: [employer], Phone , These documents contain legally protected [...] of these documents. CC: Steffany Nieves DO Material Flow Analyst: Signed Family History Unknown Family Member Name Dates Details No Known Family History 22-Jan-2013 Status: Active Social History Name Dates Details Caffeine Use Status: Active No Drug Use Status: Active Non Drinker/No Alcohol Use Status: Active Tobacco use: Smoker. Status: Active Smoking Status Name Dates Details Smoker. current status unknown Vital Signs Date Test Result Details :13 Pulse 90 /min Comments: Pattern: Regular Respiration [...] kg/m2 Body Surface Area Calculated 1.62 m2 7-Vjb-175722:17 Pulse 98 /min Comments: Pattern: Regular Respiration [...] kg/m2 Body Surface Area Calculated 1.68 m2 92-Kzt-698271:44 Pulse 84 /min Comments: Pattern: Regular Respiration [...] 1.7 m2 Results Date Description Value Details 70-Glv-983973:39 LIPID PANEL (81913) Comments: PATIENT WAS FASTINGPERFORMED BY: DUY [id number] [facility] [id number] LDL/HDL Ratio 1.8 {ratio} (Normal) Range: 0.0-3.2 Comments: LDL/HDL Ratio Men Women 1/2 Avg.Risk 1.0 1.5 Av g.Risk 3.6 3.2 2X Avg.Risk 6.2 5.0 3X Avg.Risk 8.0 6.1 LDL Cholesterol Calc 156 mg/dL (Abnormal) Range: 0-99 VLDL Cholesterol Maicol 24 mg/dL (Normal) Range: 5-40 HDL Cholesterol 87 mg/dL (Normal) Triglycerides 118 mg/dL (Normal) Range: 0-149 Cholesterol, Total 267 mg/dL (Abnormal) Range: 100-199 90-Win-08098:38 LIPID PANEL (73265) Comments: PATIENT WAS FASTINGPERFORMED BY: DUY [id number] [facility] [id number] Information: 193061,Q85527 LDL/HDL Ratio 1.9 {ratio_units} (Normal) Range: 0.0-3.2 [...] vaccination and inoculation against influenza Planned Observations Cologuard - Strool Based DNA Test, CRC SCREEN (28425)Indication: Encounter for screening for malignant neoplasm of rectum On: 24-Mno-71918:56 Request FECAL OCCULT- Tubes sent home (40583)Indication: Encounter for screening for malignant neoplasm of colon (Renamed from Special screening for malignant neoplasms, colon) On: 30-Wfw-783040:36 Request FECAL OCCULT- Tubes sent home (83666)Indication: Annual physical exam On: 7-Abt-213705:55 Request Planned Procedures DEXA SCAN AXIAL SKELETON (01228)By: On: 04-Feb-2018 Intent Lizbeth DO, Steffany Lizbeth DO, Steffany SCREENING DIGITAL TOMOSYNTHESIS OF On: 04-Feb-2018 Intent BREAST (05282)By: Lizbeth DO, Steffany Lizbeth DO, Steffany Flu Vaccine (Quadrivalent) 73849Ea: On: 04-Feb-2018 Intent Lizbeth DO, Steffany Lizbeth DO, Comments: Lot #[id number] Exp-10/18/18Site-L dltd, IMDose prefilled syringegiven by: Mika ZAMORAVIS reviewed and ABN signed Steffany Flu Vaccine (Quadrivalent) 51423Ue: On: 28-Feb-2016 Intent Lizbeth DO, Steffany Lizbeth DO, Comments: FLUlot: [id number]:09/04site:Lt deltoidroute:IMdose:.5mlDEMICK, MA Steffany MAMMOGRAM, SCREENING, BOTH BREAST On: 15-Feb-2015 Intent (40669)By: Lizbeth DO, Steffany Lizbeth DO, Steffany Flu Vaccine (Quadrivalent) 45518Uj: On: 15-Feb-2015 Intent Lizbeth DO, Steffany Lizbeth DO, Steffany Flu Vaccine (Quadrivalent) 39572Oz: On: 15-Feb-2015 Intent Lizbeth DO, Steffany Lizbeth DO, Comments: Lot:[id number]:10/19/15Dose:0.5mLRoute:IMSite:L DltdGiven By:ARNOLDO signed Steffany MAMMOGRAM, SCREENING, BOTH BREAST On: 18-Feb-2014 Intent (99521)By: Lizbeth , Steffany Lizbeth DO, Steffany Prevnar 13 (99722)By: Lizbeth JEFFREY, On: 18-Feb-2014 Intent Steffany Lizbeth DO, Steffany Comments: [id number] arm, IMAS ADMINISTRATION OF INFLUENZA VIRUS On: 18-Feb-2014 Intent VACCINE (G0008)By: Steffany Nieves DO, DO, Kathleen FLU VAC, SPLIT, >3 YEARS, INTRAMUSC On: 18-Feb-2014 Intent (14660)By: Steffany Nieves DO Comments: Lot:[id number]:01/04Amt:0.5mlRoute:IMSite: L DltdGiven By: RUSTY Farris signed Steffany Nieves DO FLU VAC, SPLIT, >3 YEARS, INTRAMUSC On: 22-Jan-2013 Intent (03072)By: Steffany Nieves DO Comments: lot [id number] 2013site/route R leonel, IMamt 0.5mlVIS and ABN signed when applicableGEETHA Jose DO, Kathleen TDAP VACCINE >7 IM (16362)By: Lizbeth On: 22-Jan-2013 Intent Steffany JEFFREY DO, Kathleen Comments: lot: [id number]: 06/11/2015site/route: L deltoid/IMamt: 0.5mLVIS signed when applicableJillGEETHA zapata MAMMOGRAM, SCREENING, BOTH BREASTS On: 22-Jan-2013 Intent (60080)By: Steffany Nieves DO Comments: dx breast screening [...] Patient Instructions Indication: Annual physical exam Encounters Phone Encounter On: 23-Feb-2018 14:41 Encounter Diagnosis: Positive colorectal cancer screening using Cologuard test End: 23-Feb-2018 14:46 [facility] Office Visit On: 04-Feb-2018 9:10 Encounter Reason: [...] patient does not have durable power of consumer product advisor or living will. The patient has noticed [...] re no current emotional problems. screening, colonoscopy (09), screening, mammography (09) and screening, Pap smear (09).Encounter Diagnosis: Annual physical exam (V70.0), NEED FOR PROPHYLACTIC VACCINATION AND INOCULATION AGAINST INFLUENZA (V04.81) [facility] Payers Hum//Medicare Christopher leal guarantor
--- OUTSIDE RECORDS SUMMARY | 2018-05-19 11:56 | XMS RPT_ITS | Continuity of Care Document ---
:1940 Author Organization [facility] Address [address] [place] [address] Phone Care Team Providers Name Role Phone [...] Department Summary Result: Comments: See Note; NOTES: [facility] Medical Records Department [address] [place] [address] Emergency Department Summary MR#: [id number] Acct: [id number] Name: RAQUEL ESPINOSA Rep #: [id number] : 1940 73 From: Dane Jaeger DO PCP: Steffany Nieves DO Status: [facility] ER DATE OF SERVICE: 05/06/2014 CHIEF [...] 4-5 days. Given a script for Naprosyn, [place] and Flexeril for pain, instructed that symptoms [...] sciatica. Dane Jaeger DO T: NTS JOB: [id number] 05/07/14 0059 <Electronically signed by Dane Jaeger DO> Date Dane Jaeger DO CC: Steffany Nieves DO Date Dictated: 05/06/141906 Date Transcribed: 05/06/141906 Leather Finisher: Signed 06-May-2014 Discharge Instruction Result: Comments: See Note; NOTES: [facility] Medical Records Department [address] [place] [address] Discharge Instruction 05/06/141903 MR#: [id number] Acct: [id number] Name: RAQUEL KAMINSKI Rep #: [id number] : 1940 73 From: Dane Jaeger DO PCP: Steffany Nieves DO Status: PRE ER ED Disposition - Plan for ED Patient: Chief Complaint: Lower Extremity Injury Instructions: ED Sciatica Prescriptions: Hydrocodone Bitart/Apap 5-325 [[place] 5/325] 1 - 2 tablet PO Q4H [...] & CAD Result: Comments: See Note; NOTES: [facility] Imaging Services [address] [place] [address] Breast Imaging Report MR#: [id number] Acct: [id number] Name: RAQUEL KAMINSKI Rep #: [id number] : 1940 F 72 From: Job Toussaint MD PCP: Status: [facility] Exam# [id number] Ordering Dr: Steffany Nieves DO MAMMOGRAPHY - [...] 24, 2013 at 11:11:[address] [phone] Electronically Signed GP/GP If you are the referring physician and would like to consult with the radiologist who provided this interpretation, please contact Job Toussaint M.D. at [phone]. If this radiologist is unavailable, you will be directed to another radiologist to assist. If you are a patient with a question regarding this report, please contact your refe rring physician directly. Professional Interpretation Provided By: [employer], Phone , These documents contain legally protected [...] of these documents. CC: Steffany Nieves DO Leather Finisher: Signed Family History Unknown Family Member Name Dates Details No Known Family History 22-Jan-2013 Status: Active Social History Name Dates Details Caffeine Use Status: Active No Drug Use Status: Active Non Drinker/No Alcohol Use Status: Active Tobacco use: Smoker. Status: Active Smoking Status Name Dates Details Smoker. current status unknown Vital Signs Date Test Result Details 31-Gya-29340:13 Pulse 90 /min Comments: Pattern: Regular Respiration [...] kg/m2 Body Surface Area Calculated 1.62 m2 0-Cuz-036969:17 Pulse 98 /min Comments: Pattern: Regular Respiration [...] 1.7 m2 Results Date Description Value Details 38-Quq-99574:38 LIPID PANEL (41286) Comments: PATIENT WAS FASTINGPERFORMED BY: DUY [facility] Omtcdv1495 [facility] [id number] Information: 378432,S28610 LDL/HDL Ratio 1.9 {ratio_units} (Normal) Range: 0.0-3.2 [...] inoculation against influenza Planned Observations LIPID PANEL (17381)Indication: SCREENING FOR HYPERLIPIDEMIA (Renamed from Encounter for screening for lipoid disorders) On: 11-Bpb-01464:58 Request Cologuard - Strool Based DNA Test, CRC SCREEN (78732)Indication: Encounter for screening for malignant neoplasm of rectum On: 58-Hmz-03112:56 Request FECAL OCCULT- Tubes sent home (38405)Indication: Encounter for screening for malignant neoplasm of colon (Renamed from Special screening for malignant neoplasms, colon) On: 66-Uyq-450636:36 Request FECAL OCCULT- Tubes sent home (17346)Indication: Annual physical exam On: 2-Ykz-872720:55 Request Planned Procedures DEXA SCAN AXIAL SKELETON (15082)By: On: 04-Feb-2018 Intent Steffany Nieves DO, DO, Kathleen SCREENING DIGITAL TOMOSYNTHESIS OF On: 04-Feb-2018 Intent BREAST (30752)By: Setffany Nieves DO, DO, Kathleen Flu Vaccine (Quadrivalent) 23774Pa: On: 04-Feb-2018 Intent Steffany Nieves DO, DO, Comments: Lot #[id number] Exp-10/18/18Site-L dltd, IMDose prefilled syringegiven by: Mika ZAMORAVIS reviewed and ABN signed Steffany Flu Vaccine (Quadrivalent) 86394Ls: On: 28-Feb-2016 Intent Lizbeth DO, Steffanymikala Nieves DO, Comments: FLUlot: [id number]:09/04site:Lt deltoidroute:IMdose:.5mlDEMICKNAN Steffany MAMMOGRAM, SCREENING, BOTH BREAST On: 15-Feb-2015 Intent (03908)By: Steffany Nieves DO Lizbeth DO, Steffany Flu Vaccine (Quadrivalent) 29977Ab: On: 15-Feb-2015 Intent Lizbeth DO, Steffany Lizbeth DO, Steffany Flu Vaccine (Quadrivalent) 81351Mg: On: 15-Feb-2015 Intent Lizbeth DO, Steffany Lizbeth DO, Comments: Lot:[id number]:10/19/15Dose:0.5mLRoute:IMSite:L DltdGiven By:ARNOLDO signed Steffany MAMMOGRAM, SCREENING, BOTH BREAST On: 18-Feb-2014 Intent (01912)By: Lizbeth JEFFREY, Steffany Lizbeth DO, Steffany Prevnar 13 (37748)By: Lizbeth JEFFREY, On: 18-Feb-2014 Intent SteffanySteffany Huynh DO Comments: [id number] arm, IMAS ADMINISTRATION OF INFLUENZA VIRUS On: 18-Feb-2014 Intent VACCINE (G0008)By: Steffany Nieves DO Lizbeth DO, Steffany FLU VAC, SPLIT, >3 YEARS, INTRAMUSC On: 18-Feb-2014 Intent (07350)By: Steffany Nieves DO Comments: Lot:[id number]:01/04Amt:0.5mlRoute:IMSite: L DltdGiven By: RUSTY Farris signed Lizbeth DO, Steffany FLU VAC, SPLIT, >3 YEARS, INTRAMUSC On: 22-Jan-2013 Intent (64954)By: Steffany Nieves DO Comments: lot [id number] 2014site/route R leonel, IMamt 0.5mlVIS and ABN signed when applicableGEETHA Jose DO, Kathleen TDAP VACCINE >7 IM (84700)By: Lizbeth On: 22-Jan-2013 Steffany Montoya DO, DO, Kathleen Comments: lot: [id number]: 06/11/2015site/route: L deltoid/IMamt: 0.5mLVIS signed when applicableGEETHA Jose MAMMOGRAM, SCREENING, BOTH BREASTS On: 22-Jan-2013 Intent (62801)By: Steffany Nieves DO Comments: dx breast screening [...] patient does not have durable power of regulatory attorney or living will. The patient has noticed [...]
--- OUTSIDE RECORDS SUMMARY | 2018-05-19 11:56 | XMS RPT_ITS | Continuity of Care Document ---
:1940 Author Organization [facility] Address [address] [place] [address] Phone Care Team Providers Name Role Phone [...] Department Summary Result: Comments: See Note; NOTES: [facility] Medical Records Department [address] [place] [address] Emergency Department Summary MR#: [id number] Acct: [id number] Name: RAQUEL ESPINOSA Rep #: [id number] : 1940 73 From: Dane Jaeger DO [...] 4-5 days. Given a script for Naprosyn, [place] and Flexeril for pain, instructed that symptoms [...] sciatica. Dane Jaeger DO T: NTS JOB: [id number] 05/07/14 0059 <Electronically signed by Dane Jaeger DO> Date Dane Jaeger DO CC: Steffany Nieves DO Date Dictated: 05/06/141906 Date Transcribed: 05/06/141906 Electronics Hardware Design Engineer: Signed 06-May-2014 Discharge Instruction Result: Comments: See Note; NOTES: [facility] Medical Records Department [address] [place] [address] Discharge Instruction 05/06/141903 MR#: [id number] Acct: [id number] Name: RAQUEL KAMINSKI [place] Rep #: [id number] : 1940 73 From: Dane Jaeger DO PCP: Steffany Nieves DO Status: PRE ER ED Disposition - Plan for ED Patient: Chief Complaint: Lower Extremity Injury Instructions: ED Sciatica Prescriptions: Hydrocodone Bitart/Apap 5-325 [[place] 5/325] 1 - 2 tablet PO Q4H [...] contact your doctor. Call [facility] ( [phone]) or report to the closest Emergency Room. Call 911 if necessary. 05/06/14 1905 <Electronically signed by Dane Jaeger DO> Date Dane Jaeger DO Cosigner Signatur e (If Indicated): Date CC: Steffany Nieves DO 24-Feb-2013 Bilat Scrn Digital & CAD Result: Comments: See Note; NOTES: [facility] Imaging Services [address] [place] [address] Breast Imaging Report MR#: [id number] Acct: [id number] Name: RAQUEL KAMINSKI Rep #: [id number] : 1940 F 72 From: Job Toussaint MD PCP: Status: REG CLI Exam# [id number] Ordering Dr: Steffany Nieves DO MAMMOGRAPHY - [...] 24, 2013 at 11:11:[address] [phone] Electronically Signed GP/GP If you are the referring physician and would like to consult with the radiologist who provided this interpretation, please contact Job Toussaint M.D. at [phone]. If this radiologist is unavailable, you will be directed to another radiologist to assist. If you are a patient with a question regarding this report, please contact your refe rring physician directly. Professional Interpretation Provided By: [employer], Phone , These documents contain legally protected [...] of these documents. CC: Steffany Nieves DO Electronics Hardware Design Engineer: Signed Family History Unknown Family Member Name [...] kg/m2 Body Surface Area Calculated 1.62 m2 8-Xbx-196768:17 Pulse 98 /min Comments: Pattern: Regular Respiration [...] kg/m2 Body Surface Area Calculated 1.68 m2 47-Vnj-861867:44 Pulse 84 /min Comments: Pattern: Regular Respiration [...] 1.7 m2 Results Date Description Value Details 24-Puo-640475:39 LIPID PANEL (02254) Comments: PATIENT WAS FASTINGPERFORMED BY: DUY [employer] [id number] LDL/HDL Ratio 1.8 {ratio} (Normal) Range: 0.0-3.2 Comments: LDL/HDL Ratio Men Women 1/2 Avg.Risk 1.0 1.5 Av g.Risk 3.6 3.2 2X Avg.Risk 6.2 5.0 3X Avg.Risk 8.0 6.1 LDL Cholesterol Calc 156 mg/dL (Abnormal) Range: 0-99 VLDL Cholesterol Maicol 24 mg/dL (Normal) Range: 5-40 HDL Cholesterol 87 mg/dL (Normal) Triglycerides 118 mg/dL (Normal) Range: 0-149 Cholesterol, Total 267 mg/dL (Abnormal) Range: 100-199 09-Pzn-33837:38 LIPID PANEL (20734) Comments: PATIENT WAS FASTINGPERFORMED BY: DUY [employer]6370 [facility] [id number] Information: 038163,H39342 LDL/HDL Ratio 1.9 {ratio_units} (Normal) Range: 0.0-3.2 Comments: LDL/HDL Ratio Men Women 1/2 Avg.Risk 1.0 1.5 Av g.Risk 3.6 3.2 2X Avg.Risk 6.2 5.0 3X Avg.Risk 8.0 6.1 LDL Cholesterol Calc 144 mg/dL (Abnormal) Range: 0-99 VLDL Cholesterol [place] 28 mg/dL (Normal) Range: 5-40 HDL Cholesterol [...] - Strool Based DNA Test, CRC SCREEN (67369)Indication: Encounter for screening for malignant neoplasm of rectum On: 35-Azr-15208:56 Request FECAL OCCULT- Tubes sent home (93624)Indication: Encounter for screening for malignant neoplasm of colon (Renamed from Special screening for malignant neoplasms, colon) On: 47-Dga-461199:36 Request FECAL OCCULT- Tubes sent home (26164)Indication: Annual physical exam On: 9-Yry-962673:55 Request Planned Procedures DEXA SCAN AXIAL SKELETON (13806)By: On: 04-Feb-2018 Intent Lizbeth DO, Steffany Lizbeth DO, Steffany SCREENING DIGITAL TOMOSYNTHESIS OF On: 04-Feb-2018 Intent BREAST (24059)By: Lizbeth DO, Steffany Lizbeth DO, Steffany Flu Vaccine (Quadrivalent) 85744He: On: 04-Feb-2018 Intent Lizbeth DO, Steffany Lizbeth DO, Comments: Lot #[id number] Exp-10/18/18Site-L dltd, IMDose prefilled syringegiven by: Mika ZAMORAVIS reviewed and ABN signed Steffany Flu Vaccine (Quadrivalent) 18680Ud: On: 28-Feb-2016 Intent Lizbeth DO, Steffany Lizbeth DO, Comments: FLUlot: [id number]:09/04site:Lt deltoidroute:IMdose:.5mlDEMICK, [place] Steffany MAMMOGRAM, SCREENING, BOTH BREAST On: 15-Feb-2015 Intent (05792)By: Lizbeth DO, Steffany Lizbeth DO, Steffany Flu Vaccine (Quadrivalent) 48375Ey: On: 15-Feb-2015 Intent Lizbeth DO, Steffany Lizbeth DO, Steffany Flu Vaccine (Quadrivalent) 72789Cb: On: 15-Feb-2015 Intent Lizbeth DO, Steffany Lizbeth DO, Comments: Lot:[id number]:10/19/15Dose:0.5mLRoute:IMSite:L DltdGiven By:ARNOLDO signed Steffany MAMMOGRAM, SCREENING, BOTH BREAST On: 18-Feb-2014 Intent (40917)By: Lizbeth , Steffany Lizbeth DO, Steffany Prevnar 13 (47193)By: Lizbeth JEFFREY, On: 18-Feb-2014 Intent Steffany Lizbeth DO, Steffany Comments: [id number] arm, IMAS ADMINISTRATION OF INFLUENZA VIRUS On: 18-Feb-2014 Intent VACCINE (G0008)By: Steffany Nieves DO, DO, Kathleen FLU VAC, SPLIT, >3 YEARS, INTRAMUSC On: 18-Feb-2014 Intent (63180)By: Steffany Nieves DO Comments: Lot:[id number]:01/04Amt:0.5mlRoute:IMSite: L DltdGiven By: RUSTY Farris signed Steffany Nieves DO FLU VAC, SPLIT, >3 YEARS, INTRAMUSC On: 22-Jan-2013 Intent (64705)By: Steffany Nieves DO Comments: lot [id number] 2013site/route R leonel, IMamt 0.5mlVIS and ABN signed when applicableGEETHA Jose DO, Kathleen TDAP VACCINE >7 IM (91186)By: Lizbeth On: 22-Jan-2013 Intent Steffany JEFFREY DO, Kathleen Comments: lot: [id number]: 06/11/2015site/route: L deltoid/IMamt: 0.5mLVIS signed when applicableJillGEETHA zapata MAMMOGRAM, SCREENING, BOTH BREASTS On: 22-Jan-2013 Intent (19616)By: Steffany Nieves DO Comments: dx breast screening [...] patient does not have durable power of product consultant or living will. The patient has noticed [...]
== END ==
PROVIDERS: Family Provider Internal Medicine; PCP Internal Medicine; Visit Provider Internal Medicine
DX: Z12.31 Encounter for screening mammogram for malignant neoplasm of breast (principal); Z78.0 Asymptomatic menopausal state
CPT/HCPCS: 77063; 77067; 77080

== ENCOUNTER → 2018-04-07 17:19 | Outpatient (CLI) | payer MEDICARE, SELFPAY ==
--- NOTE | 2018-04-07 11:46 | COLBX_PTH ---
PATIENT: RAQUEL KAMINSKI [facility] U#:[id number] AGE/SX: 84/F ROOM: RE04/07/[address]: Dr. Hiren Rios MD : [id number] BED: DIS: SPEC #: [id number] RECD: 04/07/18 16:11 STATUS: YADI REJohn #: [id number] ALENA: 04/07/18 11:[address]: Hiren Rios DEPT: SURGICAL PATHOLOGY RECD BY: Gustavo Boothe ENTERED: 04/08/18 10:27 SP TYPE: COLON BX OTHR DR: Dr. Steffany Nieves, [facility] Tissues: Transverse colon Procedures: Surgery Specimen Level IV HEADER OPERATION: Colonoscopy with cold snare PRE-OP DIAGNOSIS: Positive Cologuard test TISSUE SUBMITTED: Polyp proximal transverse, rule out adenoma MICROSCOPIC DIAGNOSIS Proximal transverse colon polyp, biopsy: Fragments of tubular adenoma. AM:mary 04/09/18 MICROSCOPIC DESCRIPTION Slides are reviewed. GROSS DESCRIPTION Received in fixative is one container labeled with the patient's name and designated transverse colon polyp. The specimen consists of two irregular fragments of light singh soft tissue that in aggregate measure 0.6 x 0.3 x 0.1 cm. The specimen is totally submitted in one cassette. / AM:mary 04/08/18 TC:5 CPT: 13303
--- OUTSIDE RECORDS SUMMARY | 2018-07-10 05:52 | XMS RPT_ITS ---
:1940 Author Organization [facility] Care Team Providers Name Role Phone Steffany Nieves DO Attending Unavailable Lizbeth , Steffany Referring Unavailable Lizbeth , Steffany Consulting Unavailable Hiren Rios Attending Unavailable Hiren Rios Referring Unavailable Lizbeth, Steffany Primary Care Unavailable Lizbeth Steffany Attending Unavailable Lizbeth Steffany Primary Care Unavailable PROBLEMS PROBLEMS DATE TYPE CONDITION / CODE ATTENDING STATUS SOURCE 04/03/2018 Unknown Z78.0 - Lizbeth, Active Johsua Asymptomatic [facility] menopausal state / Hospital Z78.0(ICD-10) Repository 04/03/2018 Unknown Z12.31 - Encounter Lizbeth, Active Joshua for screening [facility] mammogram for Hospital malignant neoplasm Repository of breast / Z12.31(ICD-10) PROCEDURES PROCEDURES No Procedure Records FoundRESULTS RESULTS COLON BIOPSY (CHOOSE Observed: 04/07/2018 Status: F Source: JOSHUA SITE) 11:46 AM [facility] REPOSITORY Patient: W[place]ESKA KAMINSKI : 1940 (77/F) Acct Num: [id number] Phys: Hiren Rios Unit Num: [id number] Loc: LABSPEC Specimen: [id number] Received: 04/07/181610 Spec Type: COLON BX TISSUES [...] one cassette. / AM:mary 04/08/18 TC:5 CPT: 02931 HEADER OPERATION: Colonoscopy with cold snare PRE-OP DIAGNOSIS: Positive Cologuard test TISSUE SUBMITTED: Polyp proximal transverse, rule out adenoma MICROSCOPIC DESCRIPTION Slides are reviewed. MICROSCOPIC DIAGNOSIS Proximal transverse colon polyp, biopsy: Fragments of tubular adenoma. AM:mary 04/09/18 Signed Jason Garcia DO 04/09/18 <signature on file> Performed By: #### PCOLBX #### [facility] [address] [place], [place], [address] DEXA BONE DENSITY Observed: 04/02/2018 Status: F Source: [place] STUDY 2:40 PM [facility] REPOSITORY [facility] Imaging Services [address] [place] [address] Dexa Bone Density Study MR#: [id number] Acct: [id number] Name: W[place]ESKA KAMINSKI Rep #: [id number] : 1940 F 77 From: Job Toussaint MD PCP: Steffany Nieves DO Status: [facility] Study: Dexa Bone Density Study Date of Exam: 04/02/18 Exam# [id number] Ordering Dr: Steffany Nieves DO STUDY: DUAL [...] Job Toussaint MD at 15:11 EST Tel [phone], Service support , CC: Steffany Nieves DO [employer] Anchor: Signed SCREENING MAMM (CAD), Observed: 04/02/2018 Status: F Source: [facility] 2:40 PM [facility] REPOSITORY [facility] Imaging Services [address] [place] [address] SCREENING MAMM (CAD), BILAT MR#: [id number] Acct: [id number] Name: W[place]ESKA KAMINSKI Rep #: [id number] : 1940 F 77 From: Job Toussaint MD PCP: Steffany Nieves DO Status: [facility] CLI Study: SCREENING MAMM (CAD), BILAT Date of Exam: 04/02/18 Exam# [id number] Ordering Dr: Steffany Nieves DO MAMMOGRAPHY - [...] delay biopsy of a clinically suspicious abnormality. [id number] Electronically Signed: Job Toussaint MD at 8:24 EST Tel [phone], Service support , CC: Steffany Nieves DO [employer] Anchor: Signed ALLERGIES ALLERGIES DATE TYPE / CODE NAME / CODE REACTION SEVERITY SOURCE 05/06/2014 Drug Sulfa Swelling Unknown [facility]/4160 ([facility]ulf[facility] 13055(SNOMED Antibiotics)/ Repository CT) [id number](RX NORM) ENCOUNTERS ENCOUNTERS ADMIT/DISCHARGE ACCOUNT ADMITTING ENCOUNTER LOCATION SOURCE NUMBER CLASS 04/07/2018 [id number] Ambulatory [facility] 0 [facility] ing:[facility]SPEC Repository 04/03/2018 [address] Ambulatory Building:[facility] Practices Repository 04/02/2018 [id number] Ambulatory [place] 0 [facility] ing:OPBD Repository PAYERS PAYERS ENCOUNTER GUARANTOR PAYER SUBSCRIBER SOURCE 04/07/2018 WALESKA Calvo Primary W[place]ESKA Bal [id number] Insurance:HUMANA FILIPEEBNERDOB: Community [place] [employer] PPOPolicy [id number], Number: Repository [place] [id number]: [id number] Date:1776-64-17YN BOX () [address] [place] [id number]: 04/07/2018 Secondary NOT GIVENUNK [place] Insurance:SELF PAY [facility] Number: Effective Repository Date:2018-04-07 04/03/2018 Waleska Calvo Primary Waleska Calvo [facility] HuebnerDOB: Insurance:Hum//Medica HuebnerDOB: Repository [id number] [facility] [id number] [place] Number: [address] [facility] [id number] [place], [place] [address]Zrs: Date:0001-27-85[place], [place] [address]Nvk: Name:[facility] Box ()Tel: (225) [address] [place] [address] () [phone] () [address]WP: 04/02/2018 WALESKA Calvo Primary W[place]ESKA Bal [id number] Insurance:ALONDRA BALDERAS: Community [place] [employer] PPOPolicy [id number], Number: [place]ository [place] [address]Jwx: [id number] Date:9254-47-45KS BOX () [address] [place] [phone]: 04/02/2018 Secondary NOT GIVENLUIS Bal Insurance:SELF PAY [facility] Number: Effective Repository Date:2018-02-04
== END ==
PROVIDERS: Family Provider Internal Medicine; PCP Internal Medicine; Referring Provider Internal Medicine Gastroenterology; Visit Provider Internal Medicine Gastroenterology
DX: K63.5 Polyp of colon (principal)
CPT/HCPCS: 88305

== ENCOUNTER → 2019-09-16 12:54 | Outpatient (CLI) | payer MEDICARE, SELFPAY ==
--- NOTE | 2019-09-16 13:04 | MRI_ITS ---
STUDY: MRI BRAIN WITH AND WITHOUT CONTRAST REASON FOR EXAM: Female, 78 years old. VISION LOSS BOTH EYES, BLURRED VISION TECHNIQUE: Standardized multiplanar fat and water weighted pulse sequences were obtained. IV 13 CC DOTAREM was administered for the contrast portion of the examination. COMPARISON: None. FINDINGS: There is mild cerebral atrophy with widening of the extra-axial spaces and ventricular dilatation. There are a limited number of small white matter hyperintensities, distributed throughout the deep white matter tracts of the cerebral hemispheres, consistent with mild chronic white matter ischemic changes. There is no evidence for recent intracranial ischemia or other cause of cytotoxic edema on diffusion weighted imaging (DWI). Normal T2* images of the brain without demonstrated susceptibility artifact. There is no demonstrated hemosiderin stain. Normal bilateral basal ganglia. Normal thalami. There is no extra-axial fluid accumulation. Normal flow voids within the major intracranial circulation suggesting patency by spin echo criteria. Normal venous enhancement. There is no enhancing intra-axial or extra-axial abnormality. Normal sella turcica, pituitary gland, infundibular stalk, optic chiasm and hypothalamus. Normal tectal plate and pineal gland. Normal midbrain, dago and medulla. Normal cerebellum. Normal basal cisterns. Normal bilateral temporal bones. Normal bilateral internal auditory canals. There are bilateral ocular lens implants with otherwise normal intraorbital contents. Normal visualized paranasal sinuses. Normal calvarium and skull base. Normal visualized soft tissue structures. Normal visualized upper cervical spine. MRI/Brain W/WO Contrast IMPRESSION: Involutional changes of the brain, as described above. No acute infarct. Electronically Signed: Josh Adkins MD at 15:19 EDT Tel , Service support ,
[2019-09-16 13:31] LABS: CREATININE FINGERSTICK 0.9 mg/dL (0.55-1.02); EGFR FINGERSTICK > 60.0000 mL/min (>60)
== END ==
PROVIDERS: PCP Internal Medicine; Referring Provider Ophthalmology; Visit Provider Ophthalmology
DX: H53.133 Sudden visual loss, bilateral (principal)
CPT/HCPCS: 70553; A9575

== ENCOUNTER → 2021-04-03 12:49 | Outpatient (CLI) | payer MEDICARE, SELFPAY ==
--- NOTE | 2021-04-03 12:53 | BI_ITS ---
MAMMOGRAPHY - BILATERAL SCREENING REASON FOR EXAM: Female, 80 years old. Routine annual screening examination. PERTINENT HISTORY: Non-contributory. TECHNIQUE: Digital bilateral breast casa (3D mammographic acquisition) in the CC and MLO projections. 2-D mediolateral oblique (MLO) and craniocaudad (CC) views of both breasts were obtained. CAD: Full Field Digital Mammography with Computer Added Detection was performed. COMPARISON: Comparison is made with prior examination dated 04/02/2018 and 02/24/2013. FINDINGS: Breast Composition: The breasts are heterogeneously dense, which may obscure small masses. There are no dominant masses or suspicious calcifications. Stable asymmetry of breast tissue where more breast tissue is seen in the upper outer quadrant of the left breast as compared to the right side. No other significant abnormalities are identified. There has been no significant change since the prior study. BI/SCRN MAMM (CAD)W/CASA BILAT IMPRESSION: Stable bilateral screening mammogram. Yearly follow-up mammogram recommended. (A) ASSESSMENT CATEGORY: BIRADS Category 2: Benign. A letter regarding these results will be sent to the patient by the facility within 30 days. Approximately 10% of breast cancers are not detected by mammography. A normal mammogram should not delay biopsy of a clinically suspicious abnormality. [id number] Electronically Signed: Job Toussaint MD at 14:19 EST , Service support ,
--- NOTE | 2021-04-03 13:01 | BD_ITS ---
STUDY: DUAL ENERGY X-RAY ABSORPTIOMETRY / DXA REASON FOR EXAM: Female, 80 years old. Postmenopausal TECHNIQUE: Bone Mineral Density (BMD) measurements of lumbar spine and bilateral hips were obtained. COMPARISON: Comparison is made with prior study dated 04/02/2018. FINDINGS: Lumbar Spine (L1-L4): g/cm2 (0.778) / T-score (-1.8) / Z-score (0.7) Findings are suggestive of osteopenia with a moderate fracture risk. Left Femur Total: g/cm2 (0.723) / T-score (-1.8) / Z-score (0.3) Left Femoral Neck: g/cm2 (0.463) / T-score (-3.5) / Z-score (-1.2) Right Femur Total: g/cm2 (0.746) / T-score (-1.6) / Z-score (0.5) Right Femoral Neck: g/cm2 (0.476) / T-score (-3.4) / Z-score (-1.0) The T-Scores on the most recent prior examination were: Lumbar Spine (L1-L4): There has been improvement of bone density since the previous examination. Left Femur Total: which represents an improvement of 3.4%. Right Femur Total: which represents an improvement of 5.5%. BD/Dexa Bone Density Study IMPRESSION: The patient is considered osteoporotic as outlined below according to World [employer] Organization (WHO) criteria with a high fracture risk. There has been improvement of bone density since the previous examination. Reference Information: The T-score is the number of standard deviations above or below the standard which is normal for young adults at their peak bone mineral density. The World Health Organization (WHO) interprets the T-scores as follows: Above -1 Normal bone density Between -1 and -2.5 Osteopenia Equal to / or below -2.5 Osteoporosis As a practical clinical guideline, osteopenia may be graded as follows: Mild -1 through -1.5 Moderate -1.6 through -2.0 Severe -2.1 through -2.4 The Z-score is the number of standard deviations above or below age-matched controls. A Z-score of less than -1.5 would be considered abnormal. References: 1. NIH Osteoporosis and Related Bone Diseases www osteo.org 2. International Society for Clinical Densitometry www iscd.org 3. National Osteoporosis Foundation www nof.org Electronically Signed: Job Toussaint MD at 15:28 EST , Service support ,
== END ==
PROVIDERS: PCP Internal Medicine; Visit Provider Internal Medicine
DX: Z78.0 Asymptomatic menopausal state (principal); Z12.31 Encounter for screening mammogram for malignant neoplasm of breast
CPT/HCPCS: 77063; 77067; 77080